=== PATIENT | female | born 1960 | race Caucasian/White ===

== ENCOUNTER → 2020-02-19 16:10 | Outpatient (CLI) | payer OTHER, SELFPAY ==
--- NOTE | 2020-02-19 16:14 | DI.MRI.S_ITS ---
PROCEDURE: MR ANKLE RT WO CON INDICATIONS: PAIN IN RIGHT ANKLE TECHNIQUE: Noncontrast sagittal T1 spin echo and T2 fast spin echo with fat saturation, axial proton density fast spin echo and T2 fast spin echo with fat saturation, coronal T1 spin echo and T2 fast spin echo with fat saturation through the ankle/hindfoot. COMPARISON: None. FINDINGS: Image quality: Excellent. Bones and joints: There is a small region of bone marrow edema within the lateral dorsal calcaneus extending posteriorly from the subtalar joint. There is an associated small region of cortical irregularity at the subtalar joint which may represent a nondisplaced fracture. No hindfoot coalitions. No osteochondral injuries of the talar dome. No pathologic joint effusions. Medial structures: The posterior tibialis, flexor digitorum longus, and flexor hallucis longus tendons are intact. The posterior tibial neurovascular bundle appears normal within the tarsal tunnel, without extrinsic mass effect. The deep layer of the deltoid ligament demonstrates intermediate signal suggesting sequelae of a prior mild sprain. The spring ligament components appear intact. Lateral structures: The anterior talofibular, calcaneofibular, and posterior talofibular ligaments appear attenuated in signal consistent with sequelae of prior sprains. There is mild periligamentous edema along the calcaneofibular ligament which inserts in the area of bone marrow edema in the calcaneus. More superiorly, the anterior and posterior tibiofibular ligaments appear intact, as is the intermalleolar ligament. The tibiofibular syndesmosis is normal in width at 2 mm or less. The peroneus longus and brevis tendons demonstrate normal location and morphology. Adjacent bony peroneal tubercle and retrotrochlear prominence are normal in size. The sinus tarsi demonstrates preserved fatty signal with mild edema. The calcaneonavicular and calcaneocuboid components of the bifurcate ligament appear intact. The dorsal calcaneocuboid ligament appears intact. Anterior structures: The tibialis anterior, extensor hallucis longus, and extensor digitorum longus tendons appear intact. The dorsal talonavicular ligament appears intact. Posterior and plantar structures: Achilles tendon is intact. Medial and lateral bands of the plantar fascia are of normal thickness. No abductor digiti quinti muscle atrophy to suggest Weber neuropathy. IMPRESSION: 1. Small region of bone marrow edema along the dorsal posterior aspect of the calcaneus laterally adjacent to the subtalar joint. Findings are in proximity to the insertion of the calcaneofibular ligament. Differential considerations include a bone contusion with possible nondepressed impaction fracture along the posterior tip talar joint versus reactive stress changes from a nondisplaced avulsion injury of the calcaneofibular ligament. 2. Sequelae of prior sprains of the lateral ankle ligaments as described. Dictated by: Skinny Gay M.D. on 02/20/2020 at 9:05 Approved by: Skinny Gay M.D. on 02/20/2020 at 9:14
== END ==
PROVIDERS: Referring Provider Family Medicine; Visit Provider Family Medicine
DX: M25.571 Pain in right ankle and joints of right foot (principal)
CPT/HCPCS: 73721

== ENCOUNTER → 2020-08-05 09:10 | Outpatient (CLI) | payer OTHER, SELFPAY ==
[2020-08-05 19:06] LABS: Alanine Aminotransferase 90 IU/L (<35); Albumin 4.6 g/dL (3.5-5.0); Albumin Globulin Ratio 1.4 (1.0-2.8); Alkaline Phosphatase 102 U/L (38-126); Aspartate Aminotransferase 64 IU/L (14-36); BUN Creatinine Ratio 15.8 (6-22); Bilirubin Total 0.7 mg/dL (0.2-1.3); Blood Urea Nitrogen 12 mg/dL (7-17); Calcium 10.2 mg/dL (8.4-10.2); Carbon Dioxide 30 mmol/L (22-32); Chloride 103 mmol/L (98-107); Cholesterol 249 mg/dL (140-199); Estimated Glomerular Filt Rate > 60.0 mL/min (>60); Gamma Glutamyl Transpeptidase 88 U/L (12-43); Globulin 3.2 g/dL (1.7-4.1); Glucose 129 mg/dL (80-110); HDL Cholesterol 60 mg/dL (40-60); HEMOLYSIS < 15 (0-50); LDL Cholesterol Calculated 132 mg/dL (<100); Potassium 4.4 mmol/L (3.4-5.1); Sodium 142 mmol/L (137-145); Total Protein 7.8 g/dL (6.3-8.2); Triglycerides 285 mg/dL (35-150)
== END ==
PROVIDERS: PCP Physician Assistant Medical; Referring Provider Physician Assistant Medical; Visit Provider Physician Assistant Medical
DX: E78.5 Hyperlipidemia, unspecified (principal); R74.01 Elevation of levels of liver transaminase levels; Z72.89 Other problems related to lifestyle
CPT/HCPCS: 80053; 80061; 82977

== ENCOUNTER → 2020-08-26 09:16 | Outpatient (CLI) | payer OTHER, SELFPAY ==
[2020-08-26 18:58] LABS: Alanine Aminotransferase 72 IU/L (<35); Albumin 4.3 g/dL (3.5-5.0); Albumin Globulin Ratio 1.5 (1.0-2.8); Alkaline Phosphatase 84 U/L (38-126); Aspartate Aminotransferase 64 IU/L (14-36); BUN Creatinine Ratio 14.9 (6-22); Bilirubin Total 0.7 mg/dL (0.2-1.3); Blood Urea Nitrogen 11 mg/dL (7-17); C-Reactive Protein Quant 0.7 mg/dL (<1.0); Calcium 9.7 mg/dL (8.4-10.2); Carbon Dioxide 28 mmol/L (22-32); Chloride 105 mmol/L (98-107); Estimated Glomerular Filt Rate > 60.0 mL/min (>60); Gamma Glutamyl Transpeptidase 47 U/L (12-43); Globulin 2.8 g/dL (1.7-4.1); Glucose 110 mg/dL (80-110); HEMOLYSIS < 15 (0-50); Potassium 4.1 mmol/L (3.4-5.1); Sodium 139 mmol/L (137-145); Total Protein 7.1 g/dL (6.3-8.2)
[2020-08-26 21:41] LABS: Erythrocyte Sedimentation Rate 7 MM/HR (0-20)
[2020-08-28 05:42] LABS: HBsAg Screen Negative (Negative); Hepatitis A Antibody IgM Negative (Negative); Hepatitis B Core Antibody IgM Negative (Negative); Hepatitis C Antibody <0.1 s/co ratio (0.0-0.9)
== END ==
PROVIDERS: PCP Physician Assistant Medical; Visit Provider Physician Assistant Medical
DX: G89.4 Chronic pain syndrome (principal)
CPT/HCPCS: 80053; 80074; 82977; 85651; 86140

== ENCOUNTER → 2020-11-03 09:45 | Outpatient (CLI) | payer BC, SELFPAY ==
[2020-11-03 20:11] LABS: Alanine Aminotransferase 60 IU/L (<35); Albumin 4.5 g/dL (3.5-5.0); Albumin Globulin Ratio 1.5 (1.0-2.8); Alkaline Phosphatase 89 U/L (38-126); Aspartate Aminotransferase 57 IU/L (14-36); BUN Creatinine Ratio 23.5 (6-22); Bilirubin Total 0.6 mg/dL (0.2-1.3); Blood Urea Nitrogen 16 mg/dL (7-17); Carbon Dioxide 25 mmol/L (22-32); Chloride 105 mmol/L (98-107); Estimated Glomerular Filt Rate > 60.0 mL/min (>60); Gamma Glutamyl Transpeptidase 56 U/L (12-43); Glucose 105 mg/dL (80-110); HEMOLYSIS < 15 (0-50); Potassium 4.7 mmol/L (3.4-5.1); Sodium 139 mmol/L (137-145); Total Protein 7.5 g/dL (6.3-8.2)
== END ==
PROVIDERS: PCP Physician Assistant Medical; Visit Provider Physician Assistant Medical
DX: R74.01 Elevation of levels of liver transaminase levels (principal)
CPT/HCPCS: 80053; 82977

== ENCOUNTER → 2021-04-29 13:21 | Outpatient (CLI) | payer BC, SELFPAY ==
--- NOTE | 2021-04-29 | DI.MG.S_ITS ---
UNILATERAL RIGHT DIGITAL DIAGNOSTIC MAMMOGRAM 3D/2D WITH ADDITIONAL VIEWS: 04/29/2021 CLINICAL: Additional evaluation requested from prior study. Comparison is made to exam dated: 12/21/2020 mammogram - outside facility. The tissue of right breast is predominantly fatty. The previously described area of possible benign architectural distortion in the right breast at 12 o'clock anterior depth is not seen in additional views. No other significant masses or calcifications are seen in the breast. IMPRESSION: BENIGN There is no mammographic evidence of malignancy. A 1 year screening mammogram is recommended. This exam was interpreted at Station ID: [id number]. NOTE: For mammograms, a report in lay terms will be sent to the patient. Approximately 15% of breast malignancies will not be visualized mammographically. In the management of a palpable breast mass, a negative mammogram must not discourage biopsy of a clinically suspicious lesion. Electronically Signed By: Nnamdi Jewell acr/:04/29/2021 14:14:46 letter sent: Normal Exam ACR BI-RADS Category 2: Benign Finding(s) [id number]
== END ==
PROVIDERS: PCP Family Medicine; Referring Provider Family Medicine; Visit Provider Family Medicine
DX: R92.8 Other abnormal and inconclusive findings on diagnostic imaging of breast (principal)
CPT/HCPCS: 77065; G0279

== ENCOUNTER → 2022-01-18 11:14 | Outpatient (CLI) | payer BC, SELFPAY ==
--- NOTE | 2022-01-18 11:45 | DI.MRI.S_ITS ---
PROCEDURE: MR LUMBAR SPINE WO CON INDICATIONS: Radiculopathy, lumbar region TECHNIQUE: Noncontrast sagittal T1 spin echo and T2 fast echo, sagittal STIR, and T2 fast spin echo through the lumbar spine. In cases with scoliosis, additional coronal T2 fast spin echo may be performed. COMPARISON: None. FINDINGS: Image quality: Diagnostic, with note made of motion artifact. Alignment and Curvature: There is normal bony alignment. Bone Marrow: Marrow is of normal overall signal. No acute vertebral body compression fractures. Spinal Cord: Conus medullaris terminates at the L1 level. Visualized cord demonstrates normal signal and size. Paraspinous Soft Tissues: No paravertebral masses. T11-T12: Mild loss of disc height is seen. The disc signal is relatively well preserved. Bridging endplate osteophytes are seen. There is moderate left-sided and mild right-sided neural foraminal narrowing. No significant central canal narrowing is seen. T12-L1: Normal appearance. L1-L2: Normal appearance. L2-L3: The disc height is well-preserved. Loss of disc signal is seen at this level. Moderate generalized disc bulge is seen. Mild facet joint hypertrophy is seen. There is moderate left-sided and [id number] right-sided neural narrowing. Mild to moderate central canal narrowing is seen. L3-L4: The disc height is well-preserved. Loss of disc signal is seen at this level. Moderate generalized disc bulge is seen. There is a superimposed central disc protrusion. Moderate facet joint hypertrophy is seen. There is at least moderate left-sided and moderate right-sided neural foraminal narrowing. There is a degree of compression seen upon the exiting left L3 nerve root. Moderate central canal narrowing is seen. L4-L5: The disc height is well-preserved. Loss of disc signal is seen at this level. Moderate generalized disc bulge is seen. At least moderate facet hypertrophy is seen, left worse than right. Moderate bilateral neural foraminal narrowing is seen. Moderate central canal narrowing is seen. L5-S1: Loss of disc signal is seen. The disc height is relatively well preserved. Moderate generalized disc bulge is seen. There is a superimposed central disc protrusion. Mild facet joint hypertrophy is seen. There is moderate to severe bilateral neural foraminal narrowing seen, with an associated a degree of compression seen upon the exiting nerve roots. Mild central canal narrowing is seen. IMPRESSION: Multiple levels of lumbar spine degenerative change are seen, including moderate to severe bilateral neural foraminal narrowing at L5-S1, with associated compression upon the exiting L5 nerve roots. Dictated by: Leno Rodrigues M.D. on 01/18/2022 at 14:55 Approved by: Leno Rodrigues M.D. on 01/18/2022 at 14:58
== END ==
PROVIDERS: PCP Family Medicine; Referring Provider Physical Medicine & Rehabilitation; Visit Provider Physical Medicine & Rehabilitation
DX: M47.26 Other spondylosis with radiculopathy, lumbar region (principal); M47.27 Other spondylosis with radiculopathy, lumbosacral region; M48.07 Spinal stenosis, lumbosacral region
CPT/HCPCS: 72148

== ENCOUNTER → 2024-05-29 10:07 | Outpatient (CLI) | payer BC, SELFPAY ==
--- NOTE | 2024-05-29 10:09 | DI.MG.S_ITS ---
BILATERAL DIGITAL SCREENING MAMMOGRAM 3D/2D WITH CAD: 05/29/2024 CLINICAL: Routine screening. Comparison is made to exam dated: 12/21/2020 mammogram - outside facility. There are scattered areas of fibroglandular density (category b / 25%-50% glandular tissue). Current study was also evaluated with a Computer Aided Detection (CAD) system. There are benign calcifications in the right breast. No significant masses, calcifications, or other findings are seen in either breast. There has been no significant interval change. IMPRESSION: BENIGN There is no mammographic evidence of malignancy. A 1 year screening mammogram is recommended. Based on the Tyrer Cuzick model (a risk assessment model) the patient's lifetime risk is 4.3% and her 10 year risk is 2.1%. According to the ACR, ACS, and NCCN guidelines, an annual breast MRI exam along with mammogram is recommended if the patient's lifetime risk is 20% or greater. This exam was interpreted at Station ID: [id number]. NOTE: For mammograms, a report in lay terms will be sent to the patient. Approximately 15% of breast malignancies will not be visualized mammographically. In the management of a palpable breast mass, a negative mammogram must not discourage biopsy of a clinically suspicious lesion. Electronically Signed By: Juan Pablo lovett/lazarus:05/29/2024 18:53:28 letter sent: Normal Exam ACR BI-RADS Category 2: Benign
--- NOTE | 2024-05-29 10:09 | DI.ECHO.S_ITS ---
[facility] [place]+ [facility] : : [address] : : [place] : : [id number] : : Phone: [phone] Echocardiogram Report + + :Name: MAURICE YA Study Date: 05/29/2024 Height: 62 in : :[facility] ReadingLocation: Weight: 200 lb : : Gender: Female BSA: 1.9 m2 : :: 1960 Age: 64 yrs BP: 129/85 mmHg: :Reason For Study: HEART MURMUR : :Ordering Physician: YESI, : :MARY Drake Performed By: Christo Adkins : :Referring: MARY KEY : + + Interpretation Summary 1. The left ventricular contractility is normal. Estimate ejection fraction is greater than 55% with no segmental wall motion abnormalities. Mild concentric LVH. Impaired relaxation. 2. The right ventricular contractility is normal. 3. All cardiac chambers are of normal size. 4. Moderate aortic valvular stenosis with mean gradient 23 mmHg. Dimensionless index is 0.41. 5. No obvious intracardiac shunts. 6. No obvious intracardiac masses nor thrombi. 7. No hemodynamically significant pericardial effusion. 8. Low right-sided filling pressures. Conclusion: Normal biventricular systolic function with moderate aortic valvular stenosis. Procedure: A two-dimensional transthoracic echocardiogram with color flow and Doppler was performed. The study quality was technically difficult. There is no prior echocardiogram noted for this patient. The patient was in normal sinus rhythm during the exam. Left Ventricle: The left ventricle is normal in size. Left ventricular wall thickness is mildly increased. There is no ventricular septal defect visualized. The ejection fraction is estimated to be 55-60%. There are no focal wall motion abnormalities. Diastolic parameters suggest a relaxation abnormality of the left ventricle, consistent with probable normal filling pressures. Right Ventricle: The right ventricle is normal in size and function. Atria: The left atrial size is normal. Right atrial size is normal. There is no Doppler evidence for an interatrial shunt. Mitral Valve: The mitral valve leaflets appear normal. There is no evidence of stenosis, fluttering, or prolapse. There is trace mitral regurgitation. Aortic Valve: The aortic valve is trileaflet. There is mild aortic valve sclerosis. The aortic valve is moderately calcified. There is moderate aortic stenosis. The peak aortic velocity is 3.17 m/sec. The aortic valve mean gradient is 23.3 mmHg. The calculated aortic valve area is 1.2 cm2. No aortic regurgitation is present. Tricuspid Valve: The tricuspid valve leaflets are thin and pliable. No tricuspid regurgitation. Pulmonic Valve: The pulmonic valve leaflets are thin and pliable; valve motion is normal. There is no pulmonic valvular regurgitation. Great Vessels: The aortic root is normal size. The ascending aorta is at the upper limits of normal in size. The pulmonary artery is normal size. The IVC is of normal diameter and collapses greater than 50% with a sniff. This suggests a low right atrial pressure of 3 mm Hg. Pericardium/ Pleura There is no pericardial effusion. There is no pleural effusion. MMode/2D Measurements & Calculations LVIDd: 4.2 cm LVOT diam: 1.9 cm LVIDs: 3.1 cm Ao root diam: 3.1 cm FS: 26.0 % asc Aorta Diam: 3.7 cm EPSS: 0.55 cm Ao Arch Diam (Prox Trans): 1.7 cm IVSd: 1.1 cm LVPWd: 1.1 cm LV early. diameter/BSA (cm/m^2): 2.2 LV sys. diameter/BSA (cm/m^2): 1.6 LA A2 area: 17.6 cm2 RA long axis: 5.4 cm LA A4 area: 15.1 cm2 RA area: 14.6 cm2 LA length (vol): 4.5 cm RA vol: 33.8 ml LA vol: 49.9 ml RA : 17.7 ml/m2 LA vol index: 26.1 ml/m2 IVC diam: 0.79 cm RVD1 (basal): 3.2 cm RVD2 (mid): 2.7 cm TAPSE: 2.2 cm Doppler Measurements & Calculations Ao V2 max: 317.0 cm/sec LVOT Max Romero: 119.5 cm/sec Ao V2 mean: 229.3 cm/sec LV V1 max P.7 mmHg Ao max P.2 mmHg LV V1 VTI: 29.2 cm Ao mean P.3 mmHg RITESH(I,D): 1.2 cm2 Ao V2 VTI: 70.7 cm RITESH(V,D): 1.1 cm2 sev ratio: 0.41 RITESH indexed to BSA (cm^2/m^2): 0.62 MV E max romero: 51.1 cm/sec PA V2 max: 77.5 cm/sec MV A max romero: 71.7 cm/sec PA V2 mean: 52.4 cm/sec MV E/A: 0.71 PA mean P.2 mmHg Med Peak E' Romero: 4.8 cm/sec PA pr(Accel): 51.6 mmHg E/E' med: 10.6 Lat Peak E' Romero: 9.3 cm/sec E/E' lat: 5.5 E/e' average: 8.1 MV dec time: 0.23 sec SV(LVOT): 83.6 ml Reading Physician:LUIS EDUARDO
== END ==
PROVIDERS: PCP Family Medicine; Referring Provider Family Medicine; Visit Provider Family Medicine
DX: Z12.31 Encounter for screening mammogram for malignant neoplasm of breast (principal); I35.0 Nonrheumatic aortic (valve) stenosis; R01.1 Cardiac murmur, unspecified; E88.810 Metabolic syndrome; E78.5 Hyperlipidemia, unspecified
CPT/HCPCS: 77063; 77067; 93306

== ENCOUNTER → 2024-12-23 09:19 | Outpatient (CLI) | payer BC, SELFPAY ==
--- NOTE | 2024-12-23 09:21 | DI.RAD.S_ITS ---
PROCEDURE: XR LUMBAR SPINE 2-3V INDICATIONS: Other chronic pain TECHNIQUE: 3 views of the lumbar spine were acquired. COMPARISON: None. FINDINGS: Bones: 5 [id number] vertebrae are present. There is 6 mm anterolisthesis of L4 on L5. Degenerative endplate changes and bilateral facet arthrosis throughout lumbar spine is seen.. No vertebral body compression fractures. No suspicious bony lesions. Soft tissues: Overlying bowel gas pattern is normal. No suspicious soft tissue calcifications. Lap band device is seen. IMPRESSION: Yrtk-fq-qzlubsie degenerative disc disease throughout lumbar spine. No acute vertebral body compression fracture. 6 mm anterolisthesis of L4 on L5. Dictated by: Jimmie Cook M.D. on 12/23/2024 at 11:16 Approved by: Jimmie Cook M.D. on 12/23/2024 at 11:23
--- NOTE | 2024-12-23 09:21 | DI.RAD.S_ITS ---
PROCEDURE: XR CERVICAL SPINE 4V OR 5V INDICATIONS: Other chronic pain TECHNIQUE: 5 views of the cervical spine were acquired. COMPARISON: None. FINDINGS: Bones: No fractures or dislocations to the T1 level. No suspicious bony lesions. Straightening of normal cervical lordosis. Loss of disc height, degenerative endplate changes and bilateral facet hypertrophic changes are noted throughout cervical spine more notably at C5-6 and C6-7 levels. There is decreased range of motion between flexion and extension, with preserved normal bony alignment. Soft tissues: Prevertebral soft tissues are normal in thickness. IMPRESSION: Uoci-ob-lulnggyd spondylitic changes throughout cervical spine. No acute fracture or dislocation. Decreased range of motion on lateral flexion and extension views with preserved cervical spine alignment. Dictated by: Jimmie Cook M.D. on 12/23/2024 at 11:31 Approved by: Jimmie Cook M.D. on 12/23/2024 at 11:32
--- NOTE | 2024-12-23 09:21 | DI.RAD.S_ITS ---
PROCEDURE: XR THORACIC SPINE 3V INDICATIONS: Other chronic pain TECHNIQUE: 3 views of the thoracic spine were acquired. COMPARISON: None. FINDINGS: Bones: No fractures or dislocations. No suspicious bony lesions. Loss of disc height, degenerative endplate changes are noted throughout thoracic spine. 12 pairs of ribs are noted, and appear intact where visualized. Soft tissues: No paravertebral stripe thickening. IMPRESSION: No acute thoracic spine fracture or dislocation. Yhqu-ip-pzwcghps spondylitic changes throughout thoracic spine. Dictated by: Jimmie Cook M.D. on 12/23/2024 at 11:23 Approved by: Jimmie Cook M.D. on 12/23/2024 at 11:31
== END ==
PROVIDERS: PCP Family Medicine; Referring Provider Family Medicine; Visit Provider Family Medicine
DX: M47.812 Spondylosis without myelopathy or radiculopathy, cervical region (principal); M47.814 Spondylosis without myelopathy or radiculopathy, thoracic region; M51.369 Other intervertebral disc degeneration, lumbar region without mention of lumbar back pain or lower extremity pain; M43.16 Spondylolisthesis, lumbar region; M54.2 Cervicalgia; M54.9 Dorsalgia, unspecified; G89.29 Other chronic pain
CPT/HCPCS: 72050; 72072; 72100